=== PATIENT | male | born 1965 | race Caucasian/White ===

== ENCOUNTER 2016-07-18 12:30 | Emergency (ER) | payer OTHER ==
[~2016-07-18] VITALS: Ht 177.8 cm; Wt 100.0 kg
[2016-07-18 12:35] VITALS: BP 184/59; PULSE 96; RESP 16; TEMP 97.9; O2SAT 94
[2016-07-18] MEDS ORDERED: BUPIVACAINE HCL PF 0.5% 10 ML VIAL INFIL ONE (13:15)
[2016-07-18] MEDS ORDERED: TETANUS/DIPHTHERIA TOXOID ADULT 0.5 ML VIAL IM ONE (13:15)
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
[2016-07-18] MEDS ORDERED: ACETAMINOPHEN/HYDROcodone 325 MG/5 MG TAB PO ONE (13:30)
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
[2016-07-18] MEDS ORDERED: PERC5TAB12 PO (14:17)
[2016-07-18] MEDS ORDERED: CEPH-460 PO (14:20)
[2016-07-24] MEDS ORDERED: PRED5TAB PO (16:16)
[2016-07-24] MEDS ORDERED: SIMVPOW (16:16)
[2016-07-24] MEDS ORDERED: OMEP20CA2 (16:16)
[2016-07-24] MEDS ORDERED: RITU500P (16:16)
[2016-07-24] MEDS ORDERED: VENTAER INH (16:16)
[2016-07-24] MEDS ORDERED: TRAZ50TA12 PO (16:16)
[2016-07-24] MEDS ORDERED: GABA600T PO (16:16)
[2016-07-24] MEDS ORDERED: IBUP800T23 PO (16:16)
[2016-07-24] MEDS ORDERED: [UNRECOGNIZED DRUG - CODE] PO (16:34)
== END 2016-07-18 14:36 | disposition home or self-care (01) ==
LOC: NEPB 12:30
DX: S61.211A Laceration without foreign body of left index finger without damage to nail, initial encounter (principal); W34.00XA Accidental discharge from unspecified firearms or gun, initial encounter; Z23 Encounter for immunization
CPT/HCPCS: 12001; 73140; 90471; 90714

== ENCOUNTER 2016-07-23 12:59 | Emergency (ER) | payer OTHER ==
[~2016-07-23] VITALS: Ht 177.8 cm; Wt 95.0 kg
[~2016-07-23 12:59] MED LIST: CEPH-460 PO; PERC5TAB12 PO
[2016-07-23 13:07] VITALS: BP 137/77; PULSE 93; RESP 16; TEMP 98.2; O2SAT 97
[2016-07-23] MEDS ORDERED: CEPH-460 PO (13:36)
[2016-07-23] MEDS ORDERED: BACT800T5 PO (13:36)
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
[2016-07-23 15:06] VITALS: BP 126/88; TEMP 98.4
[2016-07-24] MEDS ORDERED: OMEP20CA2 (16:16)
[2016-07-24] MEDS ORDERED: GABA600T PO (16:16)
[2016-07-24] MEDS ORDERED: SIMVPOW (16:16)
[2016-07-24] MEDS ORDERED: RITU500P (16:16)
[2016-07-24] MEDS ORDERED: PRED5TAB PO (16:16)
[2016-07-24] MEDS ORDERED: IBUP800T23 PO (16:16)
[2016-07-24] MEDS ORDERED: TRAZ50TA12 PO (16:16)
[2016-07-24] MEDS ORDERED: VENTAER INH (16:16)
[2016-07-24] MEDS ORDERED: [UNRECOGNIZED DRUG - CODE] PO (16:34)
== END 2016-07-23 14:37 | disposition home or self-care (01) ==
LOC: NEPC 12:59
DX: S61.201D Unspecified open wound of left index finger without damage to nail, subsequent encounter (principal); M06.9 Rheumatoid arthritis, unspecified; F17.200 Nicotine dependence, unspecified, uncomplicated; Z79.899 Other long term (current) drug therapy; X58.XXXD Exposure to other specified factors, subsequent encounter
CPT/HCPCS: 99282